=== PATIENT | male | born 1970 | race Caucasian/White ===

== ENCOUNTER → 2022-05-29 | Outpatient (CLI) | payer OTHER, SELFPAY ==
--- NOTE | 2022-05-29 14:30 | CT_ITS ---
EXAM: CT RIGHT LOWER EXTREMITY WITHOUT INTRAVENOUS CONTRAST, HIP CLINICAL INDICATION: VARUS DEFORMITY TECHNIQUE: Helically acquired images were obtained of the right hip without intravenous contrast. This CT exam was performed using one or more of the following dose reduction techniques: automated exposure control, adjustment of the mA and/or kV according to patient size, and/or use of iterative reconstruction technique. This report was created using youcalc report generation technology. RADIATION DOSE: CTDIvol = 18.76 mGy, DLP = 1526.32 mGy-cm. COMPARISON: None. FINDINGS: BONES/JOINTS: Unremarkable. No acute fracture. No subluxation. Normal alignment. Preservation of the joint space. No sclerotic or destructive changes. SOFT TISSUES: Unremarkable. No soft tissue swelling or gas. No radiopaque foreign body. CT/Extremity Lower without Contra IMPRESSION: No acute fracture or subluxation. Electronically Signed: Joe Knight MD at 4:30 EST ,
== END | disposition home or self-care (01) ==
PROVIDERS: PCP Family Medicine; Referring Provider Specialist; Visit Provider Specialist
DX: M21.161 Varus deformity, not elsewhere classified, right knee (principal)
CPT/HCPCS: 73700

== ENCOUNTER → 2022-11-16 | Outpatient (CLI) | payer OTHER, SELFPAY ==
[2022-11-16 11:43] LABS: Erythrocyte Sedimentation Rate 7 mm/hr (0-20)
[2022-11-16 11:54] LABS: Absolute Lymphocyte Count 3.36 X10^3/uL (0.83-4.51); Absolute Neutrophil Count 7.1 X10^3/uL (2.0-7.7); Basophil# 0.07 X10^3/uL; Basophil% 0.6 % (0-1); Eosinophil# 0.17 X10^3/uL; Eosinophils% 1.5 % (0-5); Hemoglobin 15.5 g/dL (13.0-16.5); Lymphocyte # 3.36 X10^3/ul (0.83-4.51); Lymphocyte % 29.1 % (19-41); Mean Corp Hgb Conc 34.4 g/dL (32-36); Mean Corpuscular Hgb 31.6 pg (27.0-32.0); Mean Corpuscular Volume 91.6 fL (80-94); Mean Platelet Vol. 10.7 fl (6.2-12.0); Monocyte# 0.74 X10^3/uL; Monocyte% 6.4 % (0-10); NRBC Flagged by Analyzer 0 % (0-5); Neutrophil # 7.14 X10^3/uL (2.7-7.7); Platelet Count 191 K/mm3 (150-450); RBC Distribution Width CV 12.6 % (11.6-14.6); RBC Distribution Width SD 41.4 fl (35.1-43.9); Red Blood Count 4.91 M/mm3 (4.6-6.2); White Blood Count 11.5 K/mm3 (4.4-11.0)
[2022-11-16 12:02] LABS: CRP 6.95 mg/L (0.0-3.0)
== END | disposition home or self-care (01) ==
LOC: LAB 10:45
PROVIDERS: PCP Family Medicine; Visit Provider Physician Assistant Surgical
DX: Z96.651 Presence of right artificial knee joint (principal)
CPT/HCPCS: 36415; 85025; 85652; 86140

== ENCOUNTER → 2022-11-23 | Outpatient (CLI) | payer OTHER, SELFPAY ==
[2022-11-23 14:35] LABS: AUTO B FLUID DILUENT BKGD CT WBC <0.1 RBC <0.01 (W<.1,R<.01); Viscosity / Synovial Fluid Mod. Viscous (HIGH)
[2022-11-23 14:36] LABS: Appearance /Synovial Fluid Cloudy (CLEAR); Color / Synovial Fluid Yellow (Pale Yellow); Source / Synovial Fluid RIGHT KNEE
[2022-11-23 14:40] LABS: Synovial Fld Mononuclear WBC % 63.6 %; Synovial Fld Polynuclear WBC # 0.269 10^3/uL; Synovial Fld Polynuclear WBC % 36.4 %
[2022-11-23 14:49] LABS: RBC /Synovial Fluid 0.013 10^6/uL (0)
[2022-11-23 16:24] LABS: Body Fluid QC Type(s) BF1Q; Lymph 49 %; Monocyte /Synovial Fluid 6 %; Neutrophil 6 % (0-25); Other Cell /Synovial Fluid 39 %
[2022-11-26 13:27] LABS: Pathologist Comment Reviewed
== END | disposition home or self-care (01) ==
LOC: LAB 13:55
PROVIDERS: PCP Family Medicine; Referring Provider Specialist; Visit Provider Specialist
DX: M25.561 Pain in right knee (principal); Z96.651 Presence of right artificial knee joint
CPT/HCPCS: 87015; 87070; 87075; 87101; 87116; 87205; 87206; 89050; 89051

== ENCOUNTER 2023-03-08 14:24 | Emergency (ER) | payer OTHER, SELFPAY ==
[2023-03-08 14:26] VITALS: BP 137/100; PULSE 105; RESP 18; TEMP 36.6; O2SAT 95
[2023-03-08 15:28] VITALS: BMI 31.8
--- NOTE | 2023-03-08 15:29 | RAD_ITS ---
STUDY: X-RAY - RIGHT KNEE REASON FOR EXAM: Male, 53 years old. pt stated sudden increase in pain. mobility limited -- surgical revision in December of this year. TECHNIQUE: 4 view(s) of the knee. COMPARISON: None. FINDINGS: Knee prosthesis noted in anatomic alignment and position. No acute fracture or dislocation. No definitive radiographic evidence for loosening or infection however three-phase bone scan would be helpful for more definitive evaluation in this regard if indicated . RAD/Knee 4 or More Views IMPRESSION: No evidence for acute fracture or other significant radiographic abnormality. 3 phase bone scan would be helpful for further evaluation if clinically warranted Electronically Signed: Omer Centeno MD at 16:08 EDT ,
--- NOTE | 2023-03-08 15:41 | VDLE_ITS ---
Reason For Study: RLE PAIN RIGHT GSV is normal. CFV is compressible, spontaneous, phasic, competent and demonstrates normal augmentation. FV is compressible, spontaneous, phasic, competent and demonstrates normal augmentation. RT POP V is compressible, spontaneous, competent, demonstrates normal augmentation with rouleaux flow noted. T/P Trunk is compressible. PTV is compressible. RT PerV is compressible. Procedure This is a venous duplex using B-mode, color flow and spectral Doppler. Exam performed portable in ED. The exam was abbreviated due to the COVID 19 protocol. The exam was diagnostic. A preliminary report was called and/or faxed to ED/Dr. Liu. VL/Venous Duplex US, Unilateral Interpretation Summary Deep veins of the right lower extremity are patent and compressible segmentally . There is no evidence of right lower extremity deep vein thrombosis. Valvular competence laurence ears intact within the proximal deep venous system on the right . The right great saphenous vein a ppears patent and compressible segmentally. Rouleaux flow is noted in the right popliteal vein. Ordering Physician: Mahendra Liu Referring Physician: Darian Castillo Performed By: Luna Kasper, MARTIN, RVT
[2023-03-08 15:48] LABS: Absolute Lymphocyte Count 3.08 X10^3/uL (0.83-4.51); Absolute Neutrophil Count 5.5 X10^3/uL (2.0-7.7); Basophil# 0.07 X10^3/uL; Basophil% 0.7 % (0-1); Eosinophil# 0.21 X10^3/uL; Eosinophils% 2.2 % (0-5); Hematocrit 45.9 % (40-54); Hemoglobin 15.6 g/dL (13.0-16.5); Lymphocyte # 3.08 X10^3/ul (0.83-4.51); Lymphocyte % 32.3 % (19-41); Mean Corpuscular Hgb 31.5 pg (27.0-32.0); Mean Corpuscular Volume 92.7 fL (80-94); Mean Platelet Vol. 10.3 fl (6.2-12.0); Monocyte# 0.68 X10^3/uL; Monocyte% 7.1 % (0-10); NRBC Flagged by Analyzer 0 % (0-5); Neutrophil # 5.47 X10^3/uL (2.7-7.7); Neutrophil % 57.4 % (47-70); Platelet Count 179 K/mm3 (150-450); RBC Distribution Width CV 12.9 % (11.6-14.6); RBC Distribution Width SD 43.8 fl (35.1-43.9); Red Blood Count 4.95 M/mm3 (4.6-6.2); White Blood Count 9.5 K/mm3 (4.4-11.0)
[2023-03-08 16:05] LABS: Anion Gap 5 (5-15); BUN 10 mg/dL (7-18); CRP 6.77 mg/L (0.0-3.0); Chloride 106 mmol/L (98-107); Creatinine, Serum 0.84 mg/dL (0.70-1.30); EST Glomerular Filtration Rate 102 mL/min (>60); Est Glom Filt Rate - Afr Amer 124 mL/min (>60); Glucose 88 mg/dL (74-106); Potassium 3.9 mmol/L (3.5-5.1); Sodium Level 136 mmol/L (136-145)
[2023-03-08 16:14] LABS: Erythrocyte Sedimentation Rate 6 mm/hr (0-20)
--- NOTE | 2023-03-08 18:25 | ED.RN ---
pt extremely frustrated d/t to the delay in results of his doppler. pt very pleasant with this rn, but frustrated with the result process for the doppler. this rn completely understands, this is a serious with the doppler studies not just with this pt.
--- NOTE | 2023-03-08 18:27 | PN.ORTHO_ITS ---
Subjective Subjective Patient is 8 weeks status post revision right total knee replacement. The called into the office with knee pain. He is also been worked up for significant back pain. He has a history of sciatica. He reports pain from his buttocks down to his leg with burning in his quadriceps. He reports a proximal tibial pain. He said no significant change in swelling of his knee. He seen no redness in his knee. His base complaint is new pain with weightbearing. He still able to move the knee without associated pain. Objective Data Objective Data Vital Signs: Vital Signs Temp Pulse Resp BP Pulse Ox O2 Del Method 97.8 F 105 H 18 137/100 H 95 Room Air 03/08/23 14:03/08/23 14:26 03/08/23 14:03/08/23 14:03/08/23 14:03/08/23 14:26 Oxygen Delivery Method Room Air Weight: 235 lb Body Mass Index (BMI) 31.8 Lab / Micro Data Attestation: I reviewed the patient's lab results. Lab results narrative: ESR and CRP reviewed. Based on available evidence concern for infection is low based on these results. 03/08/23 15:40 03/08/23 15:40 Labs: Laboratory Results - last 24 hr 03/08/23 15:40: WBC 9.5, RBC 4.95, Hgb 15.6, Hct 45.9, MCV 92.7, MCH 31.5, MCHC 34.0, RDW Std Deviation 43.8, RDW Coeff of [place] 12.9, Plt Count 179, MPV 10.3, Immature Gran % (Auto) 0.300, Neut % (Auto) 57.4, Lymph % (Auto) 32.3, [place] % (Auto) 7.1, Eos % (Auto) 2.2, Baso % (Auto) 0.7, Absolute Neuts (auto) 5.5, Absolute Lymphs (auto) 3.08, Nucleated RBC % 0, ESR 6, Sodium 136, Potassium 3.9, Chloride 106, Carbon Dioxide 25.0, Anion Gap 5, BUN 10, Creatinine 0.84, Est GFR (MDRD) Af Amer 124, Est GFR (MDRD) Non-Af 102, BUN/Creatinine Ratio 12.0, Glucose 88, Calcium 9.0, C-React Prot Ext Range 6.77 H Radiography Diagnostic Testing: Radiology Impression Knee X-Ray 03/08/23 15:29 IMPRESSION: No evidence for acute fracture or other significant radiographic abnormality. 3 phase bone scan would be helpful for further evaluation if clinically warranted Electronically Signed: Omer Centeno MD at 16:08 EDT Reading Location ID and State: [facility] / [place] Tel , Service support , Knee x-rays were compared to most recent x-rays taken in the office 2 weeks ago showing no significant changes. Physical Exam Const alert and oriented x3 Extremity Extremity Narrative: Patient's right knee was examined. He can extend the knee actively. He can flex knee actively to 110 degrees. Pain is not associated with range of motion. No acute effusion is appreciated compared to previous examination in the office. He does have continued saw spot on the superior medial retinaculum however patella continues to track well. No erythema. No excessive skin warm th. Skin Skin Narrative: Incision is clean dry and intact. Assessment & Plan Assessment/Plan (1) History of total right knee replacement: PLAN: At this point patient has evidence consistent with low suspicion for infection. Physical examination is unimpressive compared to 2 weeks ago when he was seen in the office. Laboratory examination is not consistent with infectious etiology at this time. I recommended patient follow-up in the office with me after he sees the powered bridge specialist to further evaluate potential hip pain associated with his thigh pain. I assured the patient that his x-rays and showed no acute changes in his physical examination at this time is not warranted further evaluation. However will remain diligent in his follow-up. Based on today's evidence we discussed aspiration I do not feel today's laboratory evidence warrants aspiration of the knee. Patient be discharged home. Emergency room physician was going to proceed with a DVT ultrasound. They will contact you with further results. (2) Sciatica: PLAN: I did explain to the patient I think his pain radiating into his thigh is related to his lumbar pathology. He was instructed to continue follow-up with our powered bridge specialist he is scheduled follow-up next week. I did discuss with the emergency room physician placing the patient on a steroid Dosepak to help with associated nerve pain.
--- NOTE | 2023-03-08 23:00 | ED.VIS.LOWEX ---
HPI History of Present Illness Chief Complaint: Lower Extremity Injury Narrative Narrative: 53-year-old male sent to the emergency room by Dr. Mai for evaluation of his right knee pain. He is status post knee replacement and revision. He had some problems with the knee. Dr. Mai did him to be checked out for an infectious process in the knee. Patient denies any systemic signs or symptoms patient states he has not been able to ambulate on the right knee and now has pain in the right hip and lower back. He had a CT done at an outside hospital a couple of days ago of the lower back and into the leg but there was some artifact on the CT scan of the leg due to previous knee surgery. He had an elevated D-dimer but never had an ultrasound and he did receive a prescription for one but never filled it. He called Dr. Mai's office and was sent to the ER. [facility] Medical History Sciatica Home Medications methylprednisolone 4 mg tablets in a dose pack (Medrol (Liam)) 4 mg PO DAILY #21 tabs 03/08/23 [Rx Last Taken Unknown] Allergy/AdvReac Type Severity Reaction Status Date / Time azithromycin [From Zithromax] AdvReac Mild Rash Verified 03/08/23 14:26 Social History Smoking Status: Current every day smoker tobacco type: cigarettes ROS ROS ED Constitutional Constitutional ED: Denies chills, fever(s) or sweats Eyes Eyes: Denies blurry vision or change in vision ENT ENT ED: Denies ear pain or sore throat Cardiovascular Cardiovascular: Denies chest pain, palpitations or racing heartbeat Respiratory/Chest Respiratory/Chest: Denies cough, dyspnea or sputum Gastrointestinal Gastrointestinal: Denies abdominal pain, constipation, diarrhea, nausea or vomiting Genitourinary Genitourinary ED: Denies dysuria, hematuria or urinary frequency Musculoskeletal Musculoskeletal: Reports other Details: Knee pain, right lower back pain ; Denies arthralgias, myalgias or neck pain Integumentary Denies abscess, Abrasions or rash Neurologic Neurologic: Denies headache(s), paresthesias or weakness Psychiatric Psychiatric: Denies anxiety, depression, suicidal ideation or suicidal thoughts Endocrine Endocrinology: Denies polydipsia or polyuria EXAM Physical Exam Const Vital Signs: 03/08/23 14:26 Temperature 97.8 F Temperature Source Temporal Pulse Rate 105 H Respiratory Rate 18 Blood Pressure 137/100 H Blood Pressure Mean 112 Pulse Ox 95 Oxygen Delivery Method Room Air Positive well nourished General Appearance ED: NAD HEENT Reports moist mucous membranes Chest Wall inspection of chest normal Resp normal respiratory effort and no retractions Auscultation: Negative for rales, rhonchi or wheezes Cardio regular rate and regular rhythm Back/Spine Back/Spine Narrative: Lumbar paraspinal musculature tenderness. No midline spinal deformity or step-off Extremity Extremity Narrative: This to palpation to the infrapatellar region. Patient is able to range his knee fairly well. He is not able to bear weight on it. There is no redness or warmth overlying the knee. Neuro oriented x3 and CN's II-XII intact bilaterally MDM MDM MDM Narrative Medical decision making narrative: Presenting with pain in the right knee. Differential includes knee strain, septic knee, DVT, lumbar strain. Patient is back is minimally tender to palpation the paraspinal x-rays are had a CT which showed degenerative changes. He had a positive D-dimer the other day but did not have a duplex ultrasound I will provide this today. CBC was obtained to assess white blood cell count, hemoglobin, platelets. BMP to assess renal function and electrolytes. ESR and CRP were obtained and are fairly unremarkable. White count normal at 9.5. Renal function electrolytes normal. X-ray of the right knee on my interpretation shows no acute process. Dr. Mai came to the emergency room with the patient and felt it was less likely going to be a septic knee and felt the patient is okay for discharge with Medrol Dosepak. DVT study was interpreted as normal without evidence of DVT unfortunately the patient eloped before the study for the DVT was interpreted. He has pain medication at home. I did send a Medrol Dosepak. He will follow-up with Dr. Mia Impression: 1. Right knee pain 2. Lumbar strain 3. Elevated D-dimer Lab Data Labs: Laboratory Results - last 24 hr 03/08/23 15:40 WBC 9.5 RBC 4.95 Hgb 15.6 Hct 45.9 MCV 92.7 MCH 31.5 MCHC 34.0 RDW Std Deviation 43.8 RDW Coeff of [place] 12.9 Plt Count 179 MPV 10.3 Immature Gran % (Auto) 0.300 Neut % (Auto) 57.4 Lymph % (Auto) 32.3 [place] % (Auto) 7.1 Eos % (Auto) 2.2 Baso % (Auto) 0.7 Absolute Neuts (auto) 5.5 Absolute Lymphs (auto) 3.08 Nucleated RBC % 0 ESR 6 Sodium 136 Potassium 3.9 Chloride 106 Carbon Dioxide 25.0 Anion Gap 5 BUN 10 Creatinine 0.84 Est GFR (MDRD) Af Amer 124 Est GFR (MDRD) Non-Af 102 BUN/Creatinine Ratio 12.0 Glucose 88 Calcium 9.0 C-React Prot Ext Range 6.77 H Radiography Diagnostic Testing: Clinical Impression(s) from Imaging Studies Knee X-Ray 03/08/23 15:29 IMPRESSION: No evidence for acute fracture or other significant radiographic abnormality. 3 phase bone scan would be helpful for further evaluation if clinically warranted Electronically Signed: Omer Centeno MD at 16:08 EDT Reading Location ID and State: Formerly named [facility] / [place] Tel , Service support , Venous Doppler Study 03/08/23 15:41 Interpretation Summary Deep veins of the right lower extremity are patent and compressible segmentally. There is no evidence of right lower extremity deep vein thrombosis. Valvular competence appears intact within the proximal deep venous system on the right . The right great saphenous vein appears patent and compressible segmentally. Rouleaux flow is noted in the right popliteal vein. Ordering Physician: Mahendra Liu Referring Physician: Darian Castillo Performed By: Luna Kasper, MARTIN, RVT Discharge Plan Triage Chief Complaint: Lower Extremity Injury Other Complaint: Back ED Provider: Mahendra Liu Dx/Rx/DC Orders Prescriptions: New methylprednisolone [Medrol (Liam)] 4 mg tablets,dose pack 4 mg PO DAILY Qty: 21 0RF Primary Care Provider: Darian Castillo Referrals: Darian Castillo MD [Primary Care Provider] - Alberto Mai MD [Med Staff - Active Staff] - 3-5 Days Disposition Disposition: Elopement Discharge Date/Time: 03/08/23 18:29
== END 2023-03-08 18:29 | disposition left against medical advice (07) ==
LOC: ED 17:00
PROVIDERS: Emergency Provider Student in an Organized Health Care Education/Training Program; PCP Family Medicine; Visit Provider Student in an Organized Health Care Education/Training Program
DX: S39.012A Strain of muscle, fascia and tendon of lower back, initial encounter (principal); M25.561 Pain in right knee; Z96.651 Presence of right artificial knee joint; F17.210 Nicotine dependence, cigarettes, uncomplicated; R79.89 Other specified abnormal findings of blood chemistry
CPT/HCPCS: 73564; 80048; 85025; 85652; 86140; 93971; 99285; A4216